=== PATIENT | male | born 1970 | race Two or more races ===

== ENCOUNTER 2017-06-04 00:45 | Emergency (ER) | payer SELFPAY ==
[2017-06-04 01:52] LABS: BASO # 0.1 x10^3/uL (0.0-0.2); BASO % 0 % (0-3); EOS % 0 % (0-3); HEMATOCRIT 31.2 % (39.0-53.0); HEMOGLOBIN 10.1 g/dL (13.0-17.5); LYMPH # 0.7 x10^3/uL (1.0-4.8); LYMPH % 3 % (24-48); MEAN CORPUSCULAR HEMOGLOBIN 25 pg (25-35); MEAN CORPUSCULAR HGB CONC 32 g/dL (31-37); MEAN CORPUSCULAR VOLUME 79 fL (79-100); MONO # 0.6 x10^3/uL (0.0-1.1); MONO % 3 % (0-9); NEUT % 93 % (31-73); PLATELET COUNT 418 x10^3/uL (140-400); RED BLOOD COUNT 3.95 x10^6/uL (4.30-5.70); RED CELL DISTRIBUTION WIDTH 17.5 % (11.5-14.5); WHITE BLOOD COUNT 22.5 x10^3/uL (4.0-11.0)
[2017-06-04 01:57] LABS: ADD MAN DIFF? YES
[2017-06-04 02:04] LABS: ANION GAP 9 (6-14); BLOOD UREA NITROGEN 31 mg/dL (8-26); BUN/CREATININE RATIO 21 (6-20); CALCIUM 8.8 mg/dL (8.5-10.1); CARBON DIOXIDE 30 mmol/L (21-32); CHLORIDE 91 mmol/L (98-107); CREATININE 1.5 mg/dL (0.7-1.3); GFR 49.9; GLUCOSE 298 mg/dL (70-99); POTASSIUM 5.1 mmol/L (3.5-5.1); SODIUM 130 mmol/L (136-145)
[2017-06-04 02:10] LABS: ALBUMIN 1.7 g/dL (3.4-5.0); ALBUMIN/GLOBULIN RATIO 0.3 (1.0-1.7); ALK PHOS 117 U/L (46-116); ALT (SGPT) 38 U/L (16-63); AST (SGOT) 36 U/L (15-37); TOTAL BILIRUBIN 0.4 mg/dL (0.2-1.0); TOTAL PROTEIN 7.9 g/dL (6.4-8.2)
[2017-06-04 02:12] LABS: LACTIC ACID 1.5 mmol/L (0.4-2.0)
[2017-06-04] MEDS ORDERED: PIPERACILLIN/TAZOBACTAM 3.375 GM in IV DEXTROSE 5% 50 ML IV (02:15)
[2017-06-04] MEDS ORDERED: fentaNYL PF VIAL 100 MCG/2 ML VIAL ×2 (02:20)
[2017-06-04] MEDS: IV NORMAL SALINE 1000ML BAG 1,000 ML IV ×6 (02:21→04:50)
[2017-06-04] MEDS: fentaNYL PF VIAL 100 MCG/2 ML VIAL IV ×4 (02:21→05:57)
[2017-06-04] MEDS: ONDANSETRON PF 4 MG/2 ML VIAL. IV ×2 (02:22)
[2017-06-04] MEDS: PIPERACILLIN/TAZO IV Push 3.375 GM VIAL. IVP ×2 (02:28)
[2017-06-04 02:37] LABS: AGAP ISTAT 17 mmol/L (6-14); BUN ISTAT 27 mg/dL (8-26); CHLORIDE ISTAT 90 mmol/L (98-110); CREATININE ISTAT 1.3 mg/dL (0.5-1.4); GLUCOSE ISTAT 287 mg/dL (70-99); HEMATOCRIT ISTAT 29 % (37-52); HEMOGLOBIN ISTAT 9.9 g/dL (14-18); ION CA ISTAT 1.12 mmol/L (1.13-1.32); SODIUM ISTAT 129 mmol/L (135-145); TOT CO2 ISTAT 28 mmol/L (23-32)
[2017-06-04] MEDS ORDERED: CONTRAST GIVEN MC ×2 (03:00)
[2017-06-04 03:01] LABS: BILIRUBIN,URINE NEGATIVE (NEG); CLARITY,URINE CLEAR; COLOR,URINE YELLOW; GLUCOSE,URINE 250 mg/dL (NEG); NITRITE,URINE NEGATIVE (NEG); PROTEIN,URINE NEGATIVE (NEG-TRACE)
[2017-06-04] MEDS ORDERED: IOHEXOL 300 MG/ML 100ML VIAL. IV ×2 (03:15)
[2017-06-04 03:28] LABS: BACTERIA,URINE MANY /HPF (0-FEW); RBC,URINE OCC /HPF (0-2); SQUAMOUS EPITHELIAL CELL,UR OCC /LPF
[2017-06-04 03:33] LABS: FECAL OB PT NEGATIVE (NEG); NEG OBC FOB NEG; POS OBC FOB POS
[2017-06-04] MEDS: ACETAMINOPHEN 650 MG SUPP.RECT. PR ×2 (03:35)
[2017-06-04 03:40] LABS: CREATINE KINASE 105 U/L (39-308)
[2017-06-04] MEDS ORDERED: IV NORMAL SALINE 1000ML BAG 1,000 ML IV ×2 (05:00)
[2017-06-04] MEDS ORDERED: ONDANSETRON PF 4 MG/2 ML VIAL. IV ×2 (05:00)
[2017-06-04] MEDS ORDERED: VANCOMYCIN PER PHARMACY MC ×2 (05:00)
[2017-06-04] MEDS: VANCOMYCIN 1.75 GM in IV DEXTROSE 5 %-0.2 % NACL 500 ML IV (05:30)
[2017-06-04 05:46] LABS: BARBITURATES NEG (NEG); BENZODIAZEPINES NEG (NEG); CANNABINOIDS NEG (NEG); COCAINE NEG (NEG); METHADONE NEG (NEG); OPIATES NEG (NEG); PHENCYCLIDINE NEG (NEG)
[2017-06-04 05:47] LABS: AMPHETAMINE/METHAMPHETAMINE POS (NEG); ETHANOL, URINE NEG (NEG)
[2017-06-04 05:49] LABS: INR 1.4 (0.8-1.1); PROTHROMBIN TIME PATIENT 16.6 SEC (11.7-14.0)
[2017-06-04 05:50] LABS: PARTIAL THROMBOPLASTIN TIME 48 SEC (24-38)
[2017-06-04 05:58] LABS: C-REACTIVE PROTEIN 294.2 mg/L (0-3.3)
[2017-06-04 06:51] LABS: % BANDS 4 % (0-9); % LYMPHS 4 % (24-48); % MONOS 4 % (0-10); % SEGS 88 % (35-66); PLT ESTIMATE INCREASED (ADEQUATE)
[2017-06-04 08:19] LABS: LACTIC ACID 0.8 mmol/L (0.4-2.0)
== END 2017-06-04 09:26 | disposition short-term general hospital (02) ==
LOC: ER 00:45 → ED HOLD 06:18 → ER 09:26
DX: M84.48XA Pathological fracture, other site, initial encounter for fracture (principal); M86.9 Osteomyelitis, unspecified; J86.9 Pyothorax without fistula; A41.9 Sepsis, unspecified organism; G82.20 Paraplegia, unspecified; S80.812A Abrasion, left lower leg, initial encounter; S00.211A Abrasion of right eyelid and periocular area, initial encounter; X58.XXXA Exposure to other specified factors, initial encounter; Y93.89 Activity, other specified; Y92.89 Other specified places as the place of occurrence of the external cause; Y99.8 Other external cause status
CPT/HCPCS: 36415; 51702; 71045; 72128; 74177; 80047; 80053; 80307; 81001; 82274; 82550; 83605; 85007; 85025; 85610; 85730; 86140; 87040; 87086; 87186; 87205; 87491; 87591; 96361; 96365; 96366; 96374; 96375; 99291-25; 99292; A4314; J2405; J2543; J3010; J3370; J7030